=== PATIENT | male | born 1985 | race Caucasian/White ===

== ENCOUNTER 2016-06-17 18:52 | Emergency (ER) | payer SELFPAY ==
[2016-06-17] MEDS ORDERED: ASPIRIN 81 MG TABLET, CHEWABLE PO ONE (19:14)
--- NOTE | 2016-06-17 19:14 | ER Document Report ---
ED Medical Screen (RME) - General Stated Complaint: HEART RATE PROBLEM Notes: Patient complains of rapid heart rate intermittently for a couple of days with chest heaviness, pressure, and increased shortness of breath. Denies personal cardiac history. May have anxiety. Denies drug use. Does not experience pain during these episode just feels like his heart is racing. Father from [place] at age 48 I have greeted and performed a rapid initial assessment of this patient. A comprehensive ED assessment and evaluation of the patient, analysis of test results and completion of the medical decision making process will be conducted by additional ED providers. Physical Exam - Vital signs Vitals: Temp Pulse Resp BP Pulse Ox 97.8 F 73 18 148/89 H 98 06/17/16 18:57 06/17/16 18:57 06/17/16 18:57 06/17/16 18:57 06/17/16 18:57 - Cardiovascular Rhythm: Regular Heart sounds: Normal auscultation Course - Vital Signs Vital signs: Temp Pulse Resp BP Pulse Ox 97.8 F 73 18 148/89 H 98 06/17/16 18:57 06/17/16 18:57 06/17/16 18:57 06/17/16 18:57 06/17/16 18:57
--- NOTE | 2016-06-17 19:43 | ER Document Report ---
ED General - General Chief Complaint: Palpitations Stated Complaint: HEART RATE PROBLEM Notes: Patient is a 30-year-old male without significant past medical history who presents with 2 weeks of intermittent left-sided chest discomfort and palpitations. Nothing triggers the symptoms and they do resolve spontaneously. Describes the pain in his chest as a pressure-like sensation that is mild in nature. He denies any associated shortness of breath, nausea, vomiting or diaphoresis. No prior cardiac history. He has no history of DVT or pulmonary embolus. No prior connective tissue disorders. At the time of my assessment patient states that he feels a slight pressure in his left chest but that it resolves and several minutes. He saw his primary care doctor who told him that this is likely anxiety. Patient however denies feeling anxious and has no prior history of anxiety or depression. He denies any thermal dysregulation, fatigue, weight loss or weight gain. TRAVEL OUTSIDE OF THE [place] IN LAST 30 DAYS: No - Related Data Allergies/Adverse Reactions: No Known Allergies Allergy (Verified 06/17/16 19:15) Past Medical History - General Information source: Patient - Social History Smoking Status: Never Smoker Chew tobacco use (# tins/day): No Frequency of alcohol use: None Drug Abuse: None Lives with: Alone Family History: Reviewed & Not Pertinent Renal/ Medical History: Denies: Hx Peritoneal Dialysis Review of Systems - Review of Systems Notes: Constitutional: Negative for fever. HENT: Negative for sore throat. Eyes: Negative for visual changes. Cardiovascular: Positive for chest pain and palpitations Respiratory: Negative for shortness of breath. Gastrointestinal: Negative for abdominal pain, vomiting or diarrhea. Genitourinary: Negative for dysuria. Musculoskeletal: Negative for back pain. Skin: Negative for rash. Neurological: Negative for headaches, weakness or numbness. 10 point ROS negative except as marked above and in HPI. Physical Exam - Vital signs Vitals: Temp Pulse Resp BP Pulse Ox 97.8 F 73 18 148/89 H 98 06/17/16 18:57 06/17/16 18:57 06/17/16 18:57 06/17/16 18:57 06/17/16 18:57 Interpretation: Hypertensive Notes: PHYSICAL EXAMINATION: GENERAL: Well-appearing, well-nourished and in no acute distress. HEAD: Atraumatic, normocephalic. EYES: Pupils equal round and reactive to light, extraocular movements intact, sclera anicteric, conjunctiva are normal. ENT: nares patent, oropharynx clear without exudates. Moist mucous membranes. NECK: Normal range of motion, supple without lymphadenopathy LUNGS: Breath sounds clear to auscultation bilaterally and equal. No wheezes rales or rhonchi. HEART: Regular rate and rhythm without murmurs ABDOMEN: Soft, nontender, normoactive bowel sounds. No guarding, no rebound. No masses appreciated. EXTREMITIES: Normal range of motion, no pitting or edema. No cyanosis. NEUROLOGICAL: No focal neurological deficits. Moves all extremities spontaneously and on command. PSYCH: Normal mood, normal affect. SKIN: Warm, Dry, normal turgor, no rashes or lesions noted. Course - Re-evaluation Re-evalutation: 06/17/16 19:42 Patient presents with palpitations but is in no acute distress. Vitals within normal limits at time of arrival. EKG unremarkable with a normal sinus rhythm. Laboratories are unremarkable. Patient does note some intermittent chest heaviness has been ongoing for the past 1 week. He also had a viral syndrome approximately one week prior to the onset of symptoms today. A bedside echocardiogram does not show any pericardial effusion, regional wall motion after malady, or RV dilation. At this time based on exam and history do not suspect a new onset arrhythmia, ACS, acute pulmonary embolus, aortic dissection. Patient encouraged to follow-up with his primary care physician as well as cardiology and a referral has been provided. At this time will discharge with return precautions and follow-up recommendations. Verbal discharge instructions given a the bedside and opportunity for questions given. Medication warnings reviewed. Patient is in agreement with this plan and has verbalized understanding of return precautions and the need for primary care follow-up in the next 24-72 hours. - Vital Signs Vital signs: Temp Pulse Resp BP Pulse Ox 97.8 F 73 16 129/84 H 99 06/17/16 18:57 06/17/16 18:57 06/17/16 22:01 06/17/16 22:01 06/17/16 22:01 - Laboratory Result Diagrams: 06/17/16 20:15 Laboratory results interpreted by me: 06/17/16 20:15 TSH 5.58 H - Diagnostic Test Radiology reviewed: Image reviewed, Reports reviewed Radiology results interpreted by me: 06/17/16 22:18 Chest x-ray: No acute infiltrate or pneumothorax - EKG Interpretation by Me Additional EKG results interpreted by me: 06/17/16 22:18 NSR. Rate 72[address] No ST elevations or depressions. QTc 399. Discharge - Discharge Clinical Impression: Palpitations Condition: Good Disposition: HOME, SELF-CARE Additional Instructions: Please follow-up closely with cardiology regarding your palpitations. Return if you pass out, have shortness of breath, persistent vomiting, develop significant chest pain, or have any other symptoms that are concerning to you. Referrals: INDIRA RILEY MD [ACTIVE STAFF] - Follow up in 3-5 days
[2016-06-17 20:57] LABS: ANION GAP 14 (5-19); BLOOD UREA NITROGEN 14 mg/dL (7-20); CALCIUM 9.8 mg/dL (8.4-10.2); CARBON DIOXIDE 24 mmol/L (22-30); CHLORIDE 103 mmol/L (98-107); CREATININE RESULT 1.13 mg/dL (0.52-1.25); GLUCOSE 85 mg/dL (75-110); POTASSIUM 3.9 mmol/L (3.6-5.0); SODIUM 141.3 mmol/L (137-145)
[2016-06-17 22:05] LABS: THYROID STIMULATING HORMONE 5.58 uIU/mL (0.47-4.68)
[2016-06-17 22:36] VITALS: BP 129/84
--- NOTE | 2016-06-18 08:22 | EKG REPORT ---
SEVERITY:- BORDERLINE ECG - SINUS RHYTHM NONSPECIFIC ST-T CHANGES- INFERIOR LEADS : Confirmed by: Michael Guzman MD 18-Jun-2016 08:21:27
== END 2016-06-17 22:41 | disposition home or self-care (01) ==
LOC: ER 18:52
DX: R00.2 Palpitations (principal)
CPT/HCPCS: 36415; 71010; 80048; 84439; 84443; 84484; 93005; 93010; 99285

== ENCOUNTER 2018-03-23 20:18 | Emergency (ER) | payer SELFPAY ==
[2018-03-23 21:05] LABS: ABSOLUTE BASOPHILS # (AUTO) 0.1 10^3/uL (0.0-0.2); ABSOLUTE EOSINOPHILS # (AUTO) 0.3 10^3/uL (0.0-0.6); ABSOLUTE LYMPHOCYTES (AUTO) 2.4 10^3/uL (0.5-4.7); ABSOLUTE MONOCYTES (AUTO) 0.5 10^3/uL (0.1-1.4); ABSOLUTE NEUT (AUTO) 5.4 10^3/uL (1.7-8.2); BASOPHILS % (AUTO) 0.6 % (0-2); EOSINOPHILS % (AUTO) 3.1 % (0-6); HEMATOCRIT 43.6 % (37.9-51.0); HEMOGLOBIN 15.2 g/dL (13.5-17.0); LYMPHOCYTES % (AUTO) 27.5 % (13-45); MEAN CORPUSCULAR HEMOGLOBIN 29.5 pg (27.0-33.4); MEAN CORPUSCULAR HGB CONC 34.8 g/dL (32.0-36.0); MEAN CORPUSCULAR VOLUME 85 fl (80-97); MONOCYTES % (AUTO) 5.9 % (3-13); PLATELET COUNT 269 10^3/uL (150-450); RED BLOOD COUNT 5.15 10^6/uL (4.35-5.55); RED CELL DISTRIBUTION WIDTH 12.8 % (11.5-14.0); SEGMENTED NEUTROPHILS % (AUTO) 62.9 % (42-78); TOTAL CELLS COUNTED % (AUTO) 100 %; WHITE BLOOD COUNT 8.6 10^3/uL (4.0-10.5)
[2018-03-23 21:14] LABS: ANION GAP 11 (5-19); BLOOD UREA NITROGEN 15 mg/dL (7-20); CALCIUM 9.8 mg/dL (8.4-10.2); CARBON DIOXIDE 30 mmol/L (22-30); CHLORIDE 101 mmol/L (98-107); GLUCOSE 101 mg/dL (75-110); POTASSIUM 4.1 mmol/L (3.6-5.0); SODIUM 141.8 mmol/L (137-145)
[2018-03-23] MEDS ORDERED: NAPROXEN 250 MG TABLET PO ONE (22:08)
--- NOTE | 2018-03-23 22:14 | ER Document Report ---
ED General - General Chief Complaint: Chest Pain Stated Complaint: CHEST AND LEFT ARM PAIN Time Seen by Provider: 03/23/18 20:52 Notes: Patient is a 32-year-old male without chronic medical problems who presents with several months of chest discomfort as well as several weeks of left upper extremity discomfort. The patient describes his chest pain as being a stabbing , aching pain to the left side of his chest that comes and goes intermittently and has been doing so for at least the past 3 months. Denies any active chest pain at the time of my assessment, nothing is new or different in regards to his chest pain that prompted him to come to the emergency department today. He has no history of coronary artery disease, structural heart disease, but does report that his father of a heart attack. He reports that his left upper extremity pain and discomfort is described as a shooting, stinging pain that comes and goes radiating from his shoulder down to his hand. States that he sometimes has paresthesias of the hand. Again nothing is new or different regarding this symptom that prompted a visit to the emergency department today. He has not seen his primary care doctor regarding today's concerns. He denies any associated diaphoresis, nausea or vomiting. No shortness of breath. No pleuritic pain. No trauma to the affected areas. Denies any focal loss of sensation or weakness. He is right-hand dominant. TRAVEL OUTSIDE OF THE [place] IN LAST 30 DAYS: No - Related Data Allergies/Adverse Reactions: No Known Allergies Allergy (Verified 06/17/16 19:15) Past Medical History - General Information source: Patient - Social History Smoking Status: Never Smoker Frequency of alcohol use: None Drug Abuse: None Family History: Reviewed & Not Pertinent Patient has suicidal ideation: No Patient has homicidal ideation: No Renal/ Medical History: Denies: Hx Peritoneal Dialysis GI Medical History: Reports: Hx Gastroesophageal Reflux Disease - Immunizations Hx Diphtheria, Pertussis, Tetanus Vaccination: - unsure Review of Systems - Review of Systems Notes: Constitutional: Negative for fever. HENT: Negative for sore throat. Eyes: Negative for visual changes. Cardiovascular: Positive for chest pain. Respiratory: Negative for shortness of breath. Gastrointestinal: Negative for abdominal pain, vomiting or diarrhea. Genitourinary: Negative for dysuria. Musculoskeletal: Positive for left upper extremity discomfort Skin: Negative for rash. Neurological: Negative for headaches, weakness or numbness. 10 point ROS negative except as marked above and in HPI. Physical Exam - Vital signs Vitals: Temp Pulse Resp BP Pulse Ox 98.5 F 96 17 154/88 H 97 03/23/18 20:20 03/23/18 20:20 03/23/18 20:20 03/23/18 20:20 03/23/18 20:20 Interpretation: Hypertensive Notes: PHYSICAL EXAMINATION: GENERAL: Well-appearing, well-nourished and in no acute distress. HEAD: Atraumatic, normocephalic. EYES: Pupils equal round and reactive to light, extraocular movements intact, sclera anicteric, conjunctiva are normal. ENT: nares patent, oropharynx clear without exudates. Moist mucous membranes. NECK: Normal range of motion, supple without lymphadenopathy LUNGS: Breath sounds clear to auscultation bilaterally and equal. No wheezes rales or rhonchi. HEART: Regular rate and rhythm without murmurs ABDOMEN: Soft, nontender, normoactive bowel sounds. No guarding, no rebound. No masses appreciated. EXTREMITIES: Normal range of motion, no pitting or edema. No cyanosis. No limited range of motion of the left shoulder. NEUROLOGICAL: Face symmetric. Tongue protrudes midline. Extraocular motions intact. Pupils are 2 mm and equally reactive. Normal speech, normal gait. 5 out of 5 strength in both the distal and proximal upper and lower extremities bilaterally. Sensation is grossly intact throughout. Finger to nose testing normal. Pronator drift normal. PSYCH: Moderately anxious SKIN: Warm, Dry, normal turgor, no rashes or lesions noted. Course - Re-evaluation Re-evalutation: 03/23/18 22:09 Presentation of chest pain in an otherwise well appearing patient. Chest pain has been ongoing and intermittent for over 2 months and has been associated with intermittent left upper extremity discomfort for the past 3 weeks. Low clinical suspicion for ACS given clinical history, exam, EKG without ST elevations or depressions, and negative initial troponin. HEART score less than or equal to 3. PE also seems unlikely given clinical history, absence of tachycardia or dyspnea. Patient is PERC criteria negative. CXR without evidence of pneumothorax or pneumonia. No widened mediastinum. Aortic dissection also seems unlikely given history, symmetric pulses, CXR, and vitals. Given the duration of the symptoms and a clinical history that is not suggestive of a cardiac source I do not believe serial cardiac markers are indicated. The patient symptoms actually appear most consistent with either a C6-7 cervical nerve root impingement or a musculoskeletal source. I do suspect more likely a cervical impingement given the patient's history of paresthesias intermittently in the forearm and hand as well as shooting pain radiating down the left upper extremity as well as pain over the trapezius on palpation. He has no focal neurologic deficits on exam. RMU motor and sensory distribution against resistance is intact bilaterally. At this time will discharge with return precautions and follow-up recommendations. Verbal discharge instructions given a the bedside and opportunity for questions given. Medication warnings reviewed. Patient is in agreement with this plan and has verbalized understanding of return precautions and the need for primary care follow-up in the next 24-72 hours. - Vital Signs Vital signs: Temp Pulse Resp BP Pulse Ox 98.5 F 96 15 145/94 H 97 03/23/18 20:20 03/23/18 20:20 03/23/18 22:01 03/23/18 22:01 03/23/18 22:01 - Laboratory Result Diagrams: 03/23/18 20:44 03/23/18 20:44 - Diagnostic Test Radiology reviewed: Image reviewed, Reports reviewed Radiology results interpreted by me: 03/23/18 22:10 Chest x-ray: No acute infiltrate or pneumothorax - EKG Interpretation by Me Additional EKG results interpreted by me: 03/23/18 22:15 Sinus rhythm. Rate 86. No ST elevations or depressions. QTC is 417. Discharge - Discharge Clinical Impression: Chest pain Qualifiers: Chest pain type: unspecified Qualified Code(s): R07.9 - Chest pain, unspecified Left shoulder pain Qualifiers: Chronicity: acute Qualified Code(s): M25.512 - Pain in left shoulder Condition: Good Disposition: HOME, SELF-CARE Additional Instructions: You were seen today for chest pain. The exact cause of your pain is unclear. However, based on your cardiac enzyme testing, chest x-ray, and EKG it does not appear that it is from an immediately life-threatening cause at this time. Your symptoms do appear to be related to nerves in your neck. Take naproxen 500 mg twice daily for the next 1 week and apply heat for approximately 1 hour to the base of your neck on the left side as well as of your left shoulder. Please return to emergency department immediately if you have worsening of your chest pain, shortness of breath, vomiting, become unable to exert yourself due to pain or difficulty breathing, you pass out, or have any pain that radiates into your arms, jaw, or back. Please also return if you have any additional symptoms that are concerning to you. Prescriptions: Naproxen 500 mg PO BID PRN #14 tablet PRN Reason:
[2018-03-23 22:25] VITALS: BP 145/94
--- NOTE | 2018-03-23 22:56 | RADIOLOGY REPORT (SQ) ---
EXAM DESCRIPTION: AP view of the chest CLINICAL HISTORY:32 years Male, cp Comparison: None FINDINGS: No focal lung consolidation. No pleural effusion. No pneumothorax. Cardiac and mediastinal silhouette is unremarkable. No acute osseous abnormality. Soft tissues are unremarkable. IMPRESSION: No acute findings. No focal lung consolidation.
--- NOTE | 2018-03-24 09:12 | EKG REPORT ---
SEVERITY:- NORMAL ECG - SINUS RHYTHM : Confirmed by: Janelle Velez 24-Mar-2018 09:10:36
== END 2018-03-23 22:38 | disposition home or self-care (01) ==
LOC: ER 20:18
DX: R07.9 Chest pain, unspecified (principal); M25.512 Pain in left shoulder; M79.602 Pain in left arm
CPT/HCPCS: 36415; 71045; 80048; 84484; 85025; 93005; 93010; 99285

== ENCOUNTER 2018-12-12 07:43 | Day surgery (SDC) | payer SELFPAY ==
[~2018-12-12 07:43] MED LIST: DIPHENHYDRAMINE HCL 50 MG/ML VIAL ONE; EPINEPHRINE INJ 1 MG/10 ML DISP.SYRIN ONE; FENTANYL CITRATE INJ/PF 100 MCG/2 ML AMPUL ONE; FLUMAZENIL INJ 0.5 MG/5 ML VIAL ONE; GLUCAGON,HUMAN RECOMB 1 MG INJ ONE; MIDAZOLAM 2 MG/2 ML INJ ONE; NALOXONE HCL INJ/PF 0.4 MG/1 ML SDV ONE; ONDANSETRON HCL INJ/PF 4 MG/2 ML SDV ONE
[2018-12-12] MEDS ORDERED: MIDAZOLAM 2 MG/2 ML INJ IV ONE ×5 (08:00→08:15)
[2018-12-12] MEDS ORDERED: FENTANYL CITRATE INJ/PF 50 MCG/1 ML 50 ML SDV IV ONE ×3 (08:00→08:07)
--- NOTE | 2018-12-12 08:39 | Operative Report ---
Operative Report DATE OF SURGERY: 12/12/18 Operative Report: The risks, benefits and alternatives of the procedure including the risk of bleeding, perforation requiring surgery have been explained to the patient in detail and informed consent has been obtained. The patient is taken back to the endoscopy suite and placed in the left, lateral decubital position. Conscious sedation medications are provided. Rectal examination is done which did not reveal any masses, tears or fissures. An Olympus videoscope was introduced into the patient's rectum. The scope was then carefully advanced all the way to the cecum. Cecum was identified by the usual anatomical landmarks including the ileocecal valve as well as the appendiceal office. Photodocumentation is obtained. The scope was then sequentially pulled back via the various segments of the colon including the ascending colon, hepatic flexure, transverse colon, splenic flexure, descending colon finding to the rectosigmoid portions of the colon. Retroflexion maneuvers performed. PREOPERATIVE DIAGNOSIS: Rectal bleeding POSTOPERATIVE DIAGNOSIS: Normal screening colonoscopy, internal hemorrhoids OPERATION: Diagnostic colonoscopy SURGEON: FRANCISCA HARRIS ANESTHESIA: Moderate Sedation - 8 mg of Versed, and GEN 25 mcg of fentanyl. Conscious sedation monitoring time 30 minutes. TISSUE REMOVED OR ALTERED: None. COMPLICATIONS: None. ESTIMATED BLOOD LOSS: None. INTRAOPERATIVE FINDINGS: As noted above. PROCEDURE: Patient tolerated the procedure well. No immediate postprocedure complications are noted. Patient is discharged in good condition. Discharge date 12/12/2018. Discharge diet: Regular. Discharge activity: Regular. 2 to 3-week follow-up to discuss findings. PRN follow-up. Patient is instructed to go to the emergency room call the office if there are any further problems or questions.
[2018-12-12 09:52] VITALS: BP 127/88
== END 2018-12-12 09:30 | disposition home or self-care (01) ==
LOC: END 07:43
PROVIDERS: ATTEND Internal Medicine Gastroenterology
DX: K62.5 Hemorrhage of anus and rectum (principal); K64.8 Other hemorrhoids
CPT/HCPCS: 45378; J2250; J3010; J0171; J1200; J1610; J2310; J2405; J3490